=== PATIENT | male | born 1965 | race Caucasian/White ===

== ENCOUNTER 2022-09-02 23:11 | Emergency (ER) | payer OTHER ==
[~2022-09-02] VITALS: Ht 162 cm; Wt 65.7 kg
[2022-09-02] MEDS ORDERED: NS IV 1000 ML 1,000 ML IV STA (23:16)
[2022-09-02 23:39] LABS: BASOPHILS % (AUTO) 0 % (0-10); EOSINOPHILS # (AUTO) 0.2 10^3/uL (0.0-0.3); EOSINOPHILS % (AUTO) 3 % (0-10); HEMATOCRIT 39 % (40-54); HEMOGLOBIN 13.9 g/dL (13.3-17.7); LYMPHOCYTES # (AUTO) 2.5 10^3/uL (1.0-4.0); LYMPHOCYTES % (AUTO) 34 % (12-44); MEAN CORPUSCULAR HEMOGLOBIN 29 pg (25-34); MEAN CORPUSCULAR HGB CONC 35 g/dL (32-36); MEAN CORPUSCULAR VOLUME 81 fL (80-99); MEAN PLATELET VOLUME 9.9 fL (9.0-12.2); MONOCYTES # (AUTO) 0.4 10^3/uL (0.0-1.0); MONOCYTES % (AUTO) 6 % (0-12); NEUTROPHILS # (AUTO) 4.3 10^3/uL (1.8-7.8); NEUTROPHILS % (AUTO) 57 % (42-75); PLATELET COUNT 275 10^3/uL (130-400); WHITE BLOOD COUNT 7.6 10^3/uL (4.3-11.0)
[2022-09-02 23:42] LABS: ALBUMIN 3.4 GM/DL (3.2-4.5); POTASSIUM 3.8 MMOL/L (3.6-5.0)
[2022-09-02 23:43] LABS: CALCIUM 8.5 MG/DL (8.5-10.1)
[2022-09-02 23:44] LABS: TOTAL PROTEIN 6.2 GM/DL (6.4-8.2)
[2022-09-02] MEDS ORDERED: ACETAMINOPHEN 500 MG TAB (TYLENOL) PO ONE (23:45)
[2022-09-02 23:46] LABS: BILIRUBIN,TOTAL 0.2 MG/DL (0.1-1.0)
[2022-09-02 23:48] LABS: CREATININE SERUM 1.13 MG/DL (0.60-1.30)
[2022-09-03 00:24] LABS: BILIRUBIN,URINE NEGATIVE (NEGATIVE); CLARITY,URINE CLEAR; COLOR,URINE YELLOW; GLUCOSE, URINE (UA) 3+ (NEGATIVE); KETONES,URINE TRACE (NEGATIVE); LEUKOCYTE ESTERASE ,URINE NEGATIVE (NEGATIVE); NITRITE,URINE NEGATIVE (NEGATIVE); PROTEIN,URINE NEGATIVE (NEGATIVE)
[2022-09-03] MEDS ORDERED: inSUlin (REGULAR) HUMAN 1 UNIT/0.01 ML (CHARGE PER UNIT) SC STA (00:35)
[2022-09-03] MEDS ORDERED: inSUlin (REGULAR) HUMAN 1 UNIT/0.01 ML (CHARGE PER UNIT) IV STA (00:35)
[2022-09-03 00:36] LABS: AMPHETAMINE SCREEN, URINE NEGATIVE (NEGATIVE); BACTERIA,URINE NEGATIVE /HPF; BARBITURATE SCREEN URINE NEGATIVE (NEGATIVE); BENZODIAZEPINES SCREEN URINE NEGATIVE (NEGATIVE); CANNABINOID SCREEN, URINE NEGATIVE (NEGATIVE); COCAINE SCREEN URINE NEGATIVE (NEGATIVE); METHADONE STAT NEGATIVE (NEGATIVE); OPIATE SCREEN URINE NEGATIVE (NEGATIVE); OXYCODONE STAT NEGATIVE (NEGATIVE); PROPOXYPHENE STAT NEGATIVE (NEGATIVE); TRICYCLIC ANTIDEPRESSANTS SCRE NEGATIVE (NEGATIVE)
[2022-09-03 00:36] LABS: ABG BASE EXCESS -1.2 MMOL/L (-2.5-2.5); ABG OXYGEN SATURATION 96 % (94-100); ABG PCO2 39 MMHG (35-45); ABG PH 7.39 (7.37-7.43); ABG PO2 77 MMHG (79-93); ABG TCO2 24.3 MMOL/L (21.0-31.0)
[2022-09-03 00:37] LABS: ALLENS TEST YES-POS; INSPIRED O2 21%; PATIENT TEMP 36.6; VENTILATOR NO
--- NOTE | 2022-09-03 01:27 | ED General ---
General Chief Complaint: Glucose Problems Stated Complaint: HIGH BLOOD SUGAR Nursing Triage Note: patient known diabetic, states thirsty, tired, and has a headache. Source of Information: Patient, EMS Exam Limitations: No Limitations History of Present Illness Date Seen by Provider: Sep 02, 2022 Time Seen by Provider: 23:20 Initial Comments Patient is a 57-year-old male with a history of insulin-dependent diabetes who presents to the emergency department with a chief complaint of 24 hours of generalized malaise, fatigue, increased thirst, mild headache. He has recently come in from [place] to stay with his sister. He did not bring his long-acting insulin. He states he took 25 units of short acting at around 5 PM. His sugar has read "high" at home. He denies chest pain, productive cough. No abdominal pain. No dysuria, no diarrhea. No recent sick contacts. He is a non-smoker. He did have 1 beer today. Does not drink daily. Timing/Duration: 24 Hours Severity: Moderate Associated Systoms: Headaches, Malaise, Weakness Allergies and Home Medications Allergies Coded Allergies: No Known Drug Allergies (Unverified , 09/02/22) Patient Home Medication List Home Medication List Reviewed: Yes Review of Systems Review of Systems Constitutional: see HPI, malaise EENTM: no symptoms reported Respiratory: no symptoms reported Cardiovascular: no symptoms reported Gastrointestinal: nausea Genitourinary: frequency Musculoskeletal: no symptoms reported Skin: no symptoms reported Psychiatric/Neurological: Headache All Other Systems Reviewed Negative Unless Noted: Yes Past [id number] Hx Past Medical History Surgery/Hospitalization HX: Diabetic, Ortho surgery Physical Exam Vital Signs Vital Signs - First Documented 09/02/22 23:13 Temp 36.6 Pulse 98 Resp 20 B/P (MAP) 146/92 (110) Pulse Ox 95 O2 Delivery Room Air Capillary Refill : Less Than 3 Seconds Height, Weight, BMI Height: '" Weight: lbs. oz. kg; 25.00 BMI Method: General Appearance: No Apparent Distress, WD/WN, Thin Eyes: Bilateral Eye Normal Inspection, Bilateral Eye PERRL HEENT: PERRL/EOMI, Other (Dry oral mucosa) Neck: Normal Inspection Respiratory: Lungs Clear, Normal Breath Sounds, No Accessory Muscle Use, No Respiratory Distress Cardiovascular: Regular Rate, Rhythm, Normal Peripheral Pulses Gastrointestinal: Normal Bowel Sounds, Soft, Tenderness (Mid abdominal tenderness without involuntary guarding or rebound) Extremity: Normal Capillary Refill, Normal Inspection, Normal Range of Motion, Non Tender, No Calf Tenderness, No Pedal Edema Neurologic/Psychiatric: Alert, Oriented x3, No Motor/Sensory Deficits, Normal Mood/Affect, pearl glue drier II-XII Norm as Tested Skin: Normal Color, Warm/Dry Progress/Results/Core Measures Suspected Sepsis SIRS Temperature: Pulse: 98 Respiratory Rate: 20 Laboratory Tests 09/02/22 23:15: White Blood Count 7.6 Blood Pressure 146 /92 Mean: 110 Laboratory Tests 09/02/22 23:15: Creatinine 1.13, Platelet Count 275, Total Bilirubin 0.2 Results/Orders Lab Results Laboratory Tests Test 09/02/22 23:15 09/03/22 00:10 09/03/22 00:30 09/03/22 01:27 Range/Units White Blood Count 7.6 4.3-11.0 10^3/uL Red Blood Count 4.86 4.30-5.52 10^6/uL Hemoglobin 13.9 13.3-17.7 g/dL Hematocrit 39 L 40-54 % Mean Corpuscular Volume 81 80-99 fL Mean Corpuscular Hemoglobin 29 25-34 pg Mean Corpuscular Hemoglobin Concent 35 32-36 g/dL Red Cell Distribution Width 12.0 10.0-14.5 % Platelet Count 275 130-400 10^3/uL Mean Platelet Volume 9.9 9.0-12.2 fL Immature Granulocyte % (Auto) 0 % Neutrophils (%) (Auto) 57 42-75 % Lymphocytes (%) (Auto) 34 12-44 % Monocytes (%) (Auto) 6 0-12 % Eosinophils (%) (Auto) 3 0-10 % Basophils (%) (Auto) 0 0-10 % Neutrophils # (Auto) 4.3 1.8-7.8 10^3/uL Lymphocytes # (Auto) 2.5 1.0-4.0 10^3/uL Monocytes # (Auto) 0.4 0.0-1.0 10^3/uL Eosinophils # (Auto) 0.2 0.0-0.3 10^3/uL Basophils # (Auto) 0.0 0.0-0.1 10^3/uL Immature Granulocyte # (Auto) 0.0 0.0-0.1 10^3/uL Sodium Level 130 L 135-145 MMOL/L Potassium Level 3.8 3.6-5.0 MMOL/L Chloride Level 100 98-107 MMOL/L Carbon Dioxide Level 18 L 21-32 MMOL/L Anion Gap 12 5-14 MMOL/L Blood Urea Nitrogen 14 7-18 MG/DL Creatinine 1.13 0.60-1.30 MG/DL Estimat Glomerular Filtration Rate 75 BUN/Creatinine Ratio 12 Glucose Level 678 *H 70-105 MG/DL Calcium Level 8.5 8.5-10.1 MG/DL Corrected Calcium 9.0 8.5-10.1 MG/DL Total Bilirubin 0.2 0.1-1.0 MG/DL Aspartate Amino Transf (AST/SGOT) 13 5-34 U/L Alanine Aminotransferase (ALT/SGPT) 14 0-55 U/L Alkaline Phosphatase 133 40-136 U/L Total Protein 6.2 L 6.4-8.2 GM/DL Albumin 3.4 3.2-4.5 GM/DL Lipase 63 8-78 U/L Beta-Hydroxybutyrate (Chem panel) 0.28 H 0.00-0.27 MMOL/L Urine Color YELLOW Urine Clarity CLEAR Urine pH 6.0 5-9 Urine Specific [place] 1.015 L 1.016-1.022 Urine Protein NEGATIVE NEGATIVE Urine Glucose (UA) 3+ H NEGATIVE Urine Ketones TRACE H NEGATIVE Urine Nitrite NEGATIVE NEGATIVE Urine Bilirubin NEGATIVE NEGATIVE Urine Urobilinogen 0.2 < = 1.0 MG/DL Urine Leukocyte Esterase NEGATIVE NEGATIVE Urine RBC (Auto) NEGATIVE NEGATIVE Urine RBC NONE /HPF Urine WBC NONE /HPF Urine Crystals NONE /LPF Urine Bacteria NEGATIVE /HPF Urine Casts NONE /LPF Urine Mucus NEGATIVE /LPF Urine Culture Indicated NO Urine Opiates Screen NEGATIVE NEGATIVE Urine Oxycodone Screen NEGATIVE NEGATIVE Urine Methadone Screen NEGATIVE NEGATIVE Urine Propoxyphene Screen NEGATIVE NEGATIVE Urine Barbiturates Screen NEGATIVE NEGATIVE Ur Tricyclic Antidepressants Screen NEGATIVE NEGATIVE Urine Phencyclidine Screen NEGATIVE NEGATIVE Urine Amphetamines Screen NEGATIVE NEGATIVE Urine Methamphetamines Screen NEGATIVE NEGATIVE Urine Benzodiazepines Screen NEGATIVE NEGATIVE Urine Cocaine Screen NEGATIVE NEGATIVE Urine Cannabinoids Screen NEGATIVE NEGATIVE Blood Gas Puncture Site RR Blood Gas Patient Temperature 36.6 Arterial Blood pH 7.39 7.37-7.43 Arterial Blood Partial Pressure CO2 39 35-45 MMHG Arterial Blood Partial Pressure O2 77 L 79-93 MMHG Arterial Blood HCO3 23 23-27 MMOL/L Arterial Blood Total CO2 24.3 21.0-31.0 MMOL/L Arterial Blood Oxygen Saturation 96 94-100 % Arterial Blood Base Excess -1.2 -2.5-2.5 MMOL/L Dominic Test YES-POS Blood Gas Ventilator Setting NO Blood Gas Inspired Oxygen 21% My Orders Orders - LISETH ARGUETA MD Ed Iv/Invasive Line Start (09/02/22 23:16) Cbc With Automated Diff (09/02/22 23:16) Comprehensive Metabolic Panel (09/02/22 23:16) Lipase (09/02/22 23:16) Ua Culture If Indicated (09/02/22 23:16) Drug Screen Stat (Urine) (09/02/22 23:16) Beta Hydroxybutyrate (09/02/22 23:16) Ns Iv 1000 Ml (Sodium Chloride 0.9%) (09/02/22 23:16) Accucheck Prn (09/02/22 23:16) Acetaminophen Tablet (Tylenol Tablet) (09/02/22 23:45) Arterial Blood Gas (09/03/22 00:25) Insulin (Regular) Human (Novolin R (Per (09/03/22 00:35) Insulin (Regular) Human (Novolin R (Per (09/03/22 00:35) Arterial Blood Draw - Obtain (09/03/22 12:39) Medications Given in ED Current Medications Medications Dose Ordered Sig/Billie Route Start Time Stop Time Status Last Admin Dose Admin Acetaminophen 1,000 mg ONCE ONCE PO 09/02/22 23:45 09/02/22 23:46 DC 09/02/22 23:46 1,000 MG Vital Signs/I&O 09/02/22 23:13 Temp 36.6 Pulse 98 Resp 20 B/P (MAP) 146/92 (110) Pulse Ox 95 O2 Delivery Room Air 09/03/22 00:00 Intake Total 1000 ml Balance 1000 ml Capillary Refill : Less Than 3 Seconds Blood Pressure Mean: 110 Progress Note : Time: 01:30 Progress Note Blood sugar 321 @ 0130 Patient seen and evaluated by me. Pertinent physical exam findings well- developed well-nourished male who is thin, appears dehydrated, dry mucous membranes. No focal neurologic deficits. Heart is regular, slightly tachycardic, lungs are clear. Mild abdominal tenderness without involuntary guarding or rebound tenderness. No lower extremity edema. No obvious skin wounds or infections. Still diagnosis based on history and physical exam, hyperglycemia, DKA, hyperkalemia, acute kidney injury. Labs independently reviewed and interpreted by me. Patient has a normal CBC. Chem-12 remarkable for blood sugar of 678. CO2 decreased at 18. Beta hydroxybutyric acid 0.28. ABG shows a pH of 7.39 PCO2 of 39 PO2 of 77 bicarb of 23 on room air. Urine tox is negative urinalysis is negative. Is treated in the emergency department with a liter of normal saline, he completed a liter of normal saline per EMS for a total of 2 L total. He was given 5 units of regular insulin subcu and 5 units IV. And 1 g of Tylenol for his headache. He feels much better. He is tolerating oral fluids, ice water at this time. Blood sugar repeated in the emergency department currently 321. No evidence of DKA at this time. He has relatively normal renal function, his potassium is 3.8. No clinical or objective findings to warrant further labs or admission at this time. Patient is strongly encouraged to follow his diabetic diet and as long as he is in [place] to follow-up with [facility] and get back on his long acting insulin. He verbalized understanding of the plan of care. All questions are sought and answered. Patient is improved at discharge. Departure Impression Primary Impression: Hyperglycemia due to diabetes mellitus Disposition: 01 HOME, SELF-CARE Condition: Improved Departure-Patient Inst. Decision time for Depature: 01:35 Referrals: [facility] [place] [facility],LOCAL PHYSICIAN (PCP) Primary Care Physician Patient Instructions: How to Prevent High Blood Sugar Emergencies in Diabetes Add. Discharge Instructions: Drink plenty of fluids to stay well-hydrated. You need to watch your carbohydrate/glucose intake daily. Follow a sliding scale pattern with your regular insulin. Please follow-up with [facility] to get back on your long-acting insulin. If you have any other new, concerning or emergent complaints please return to the emergency department for reevaluation LISETH ARGUETA MD Sep 03, 2022 01:27
[2022-09-03 06:44] VITALS: BP 146/92
== END 2022-09-03 06:47 | disposition home or self-care (01) ==
LOC: ER 23:15
DX: E11.65 Type 2 diabetes mellitus with hyperglycemia (principal); R00.0 Tachycardia, unspecified; Z79.4 Long term (current) use of insulin; Z28.310 Unvaccinated for COVID-19
CPT/HCPCS: 36415; 36600; 80053; 80306; 81000; 82010; 82805; 82947; 83690; 85025